=== PATIENT | female | born 1980 | race Caucasian/White ===

== ENCOUNTER 2017-07-02 16:32 | Inpatient (IN) | payer MEDICARE ==
[~2017-07-02] VITALS: Ht 160 cm; Wt 57.2 kg
--- NOTE | ~2017-07-02 | OP ---
PATIENT NAME: TIM LAWLER MEDICAL RECORD: [id number] :80 LOCATION:[id number] ADMISSION DATE:07/02/17 SURGEON: LEONIDES LO MD DATE OF OPERATION: 07/03/2017 PREOPERATIVE DIAGNOSES: 1. Acute appendicitis with localized peritonitis. 2. Diabetes insipidus. POSTOPERATIVE DIAGNOSES: 1. Acute appendicitis with localized peritonitis. 2. Diabetes insipidus. PROCEDURE: Laparoscopic appendectomy. SURGEON: Leonides Lo MD REPORT OF PROCEDURE: The patient's abdomen was prepped and draped in sterile fashion. A cutdown was made on the superior aspect of the umbilicus, 0 Vicryls were placed in the fascia bilaterally and the fascia was incised with 15-blade. I then bluntly entered the peritoneal cavity and placed a 12-mm Alcira port. Under direct visualization, a 5 mm trocar was placed in the left lower quadrant and another was placed in the suprapubic region. The patient's cecum was extending down into the pelvis. As we rotated this medially, we could see the appendix was retrocecal. It was adherent to the lateral abdominal wall and to the posterior aspect of the cecum. The base of the appendix appeared to be normal, but the distal appendix was acutely inflamed. As we peeled it off the lateral abdominal wall, there was a small collection of purulent material consistent with an abscess. This was irrigated out and suctioned clean. There was probably a total of 2 cc of abscess fluid present. The appendix was eventually peeled off the cecum. A window was made at the base of the appendix and the mesoappendix and the base of the appendix was transected at the cecum using a 45 blue load Endo-VIRGEN stapler. The appendix was then taken off the mesoappendix using Harmonic scalpel. We inspected the area thoroughly and eventually placed the appendix into an Endo Catch bag. With irrigation of the right lower quadrant, there was still some ooziness to the surrounding inflammatory tissue. We eventually treated this with Randee. This discontinued any bleeding. We then irrigated out the abdomen with normal saline with care taken to irrigate out the right lower quadrant and the pelvis. Again, at the conclusion of the case, there was no sign of any active bleeding. At this point, the ports and insufflation were then removed and the appendix was taken out through the umbilicus. The umbilical fascia was closed with interrupted 0 Vicryls times 3. The wounds were irrigated out with normal saline and infused with 10 mL of 0.25% Marcaine with epinephrine. The skin incisions were all closed with subcutaneous 5-0 Monocryl and dressed appropriately. COMPLICATIONS: None. CONDITION: Stable. ANESTHESIA: General endotracheal and local. BLOOD LOSS: Minimal. TRANSINT:[id number] Voice Confirmation ID: [id number] DOCUMENT ID: [id number] OPERATIVE REPORT [id number] TIM LAWLER CHRISTIAN MD at 0955 CC: [id number] DICTATION DATE: 07/03/17 1327 TRANSFORMER ASSEMBLER: 07/03/17 1345 ADM IN [place] [id number] [place] [id number]
[2017-07-02 17:05] LABS: BASOPHILS 0.2 % (0-2); HEMATOCRIT 37.4 % (36.0-48.0); HEMOGLOBIN 12.4 g/dL (12-16); IMMATURE GRANULOCYTES 0.2 % (0-5); LYMPHOCYTES 23.4 % (15-50); MCHC 33.2 g/dL (31.0-37.0); MCV 93.5 fL (80.0-100.0); MEAN PLATELET VOLUME 11.3 fL (7.4-10.4); MONOCYTES 7.5 % (2-11); NEUTROPHILS 67.7 % (40-80); PLATELET COUNT 265 10x3/uL (130-400); RDW 12.3 % (11.5-14.5); WBC 12.4 10x3/uL (4.8-10.8)
[2017-07-02 17:21] LABS: ALBUMIN 3.6 g/dL (3.4-5.0); ALKALINE PHOSPHATASE 75 U/L (46-116); ALT (SGPT) 20 U/L (10-68); CALC OSMOLALITY 273 mosm/kg (275-300); CALCIUM 8.7 mg/dL (8.5-10.1); CARBON DIOXIDE 32.3 mmol/L (21.0-32.0); CHLORIDE - SERUM 99 mmol/L (98-107); CREATININE - SERUM 0.8 mg/dL (0.6-1.3); GLUCOSE 84 mg/dL (74-106); POTASSIUM - SERUM 3.6 mmol/L (3.5-5.1); PROTEIN - SERUM 7.6 g/dL (6.4-8.2); SODIUM 138 mmol/L (136-145); UREA NITROGEN 10 mg/dL (7-18); eGFR NON AFRICAN AMERICAN 86 mL/min (90-120)
[2017-07-02] MEDS ORDERED: DESMOPRESSIN A0.2 MG PO (22:27)
[2017-07-02 22:28] VITALS: BP 112/71
[2017-07-03] VITALS (11 sets, daily range): BP systolic 86–134; BP diastolic 52–77; Ht 160 cm; Wt 57.2 kg
[2017-07-04 00:08] VITALS: BP 106/65
[2017-07-04 04:40] VITALS: BP 100/61
[2017-07-04 08:55] VITALS: BP 133/76
[2017-07-04] MEDS ORDERED: BACTRIM DS TABL1 TAB PO (09:54)
[2017-07-04] MEDS ORDERED: HYDROCODONE-APA1 TAB PO (09:54)
== END 2017-07-04 12:00 | disposition home or self-care (01) | DRG 339 ==
LOC: D.ER 16:32 → OBSVTIME 18:45 → D.WS 18:45
PROVIDERS: Family Medicine; Surgery
PROC: 0DTJ4ZZ Resection of Appendix, Percutaneous Endoscopic Approach (ICD-10-PCS; principal; 2017-07-03 12:00)
DX: K35.3 Acute appendicitis with localized peritonitis (principal); E23.2 Diabetes insipidus

== ENCOUNTER 2018-12-08 13:14 | Emergency (ER) | payer MEDICARE ==
[~2018-12-08] VITALS: Ht 160 cm; Wt 59.1 kg
[~2018-12-08 13:14] MED LIST: BACTRIM DS TABL1 TAB PO; DESMOPRESSIN A0.2 MG PO; HYDROCODONE-APA1 TAB PO
[2018-12-08 13:22] VITALS: Ht 160 cm; Wt 59.1 kg
[2018-12-08 13:58] LABS: BASOPHILS 0.5 % (0-2); EOSINOPHILS 2.4 % (0-7); HEMATOCRIT 39.4 % (36.0-48.0); IMMATURE GRANULOCYTES 0.1 % (0-5); LYMPHOCYTES 29.9 % (15-50); MCH 30.6 pg (26.0-34.0); MCV 92.7 fL (80.0-100.0); MEAN PLATELET VOLUME 11.5 fL (7.4-10.4); MONOCYTES 7.2 % (2-11); NEUTROPHILS 59.9 % (40-80); PLATELET COUNT 240 10x3/uL (130-400); RBC 4.25 10x6/uL (4.00-5.40); RDW 13.2 % (11.5-14.5); WBC 8.5 10x3/uL (4.8-10.8)
[2018-12-08 14:06] LABS: APPEARANCE CLEAR (CLEAR); BILIRUBIN NEGATIVE (NEGATIVE); COLOR YELLOW (YELLOW); GLUCOSE NEGATIVE (NEGATIVE); KETONE NEGATIVE (NEGATIVE); NITRITE NEGATIVE (NEGATIVE); PROTEIN NEGATIVE (NEGATIVE); UROBILINOGEN NORMAL (NORMAL)
[2018-12-08 14:11] LABS: ALBUMIN 3.7 g/dL (3.4-5.0); ALKALINE PHOSPHATASE 60 U/L (46-116); ALT (SGPT) 24 U/L (10-68); BILIRUBIN - TOTAL 0.14 mg/dL (0.2-1.3); CALC OSMOLALITY 280 mosm/kg (275-300); CALCIUM 8.5 mg/dL (8.5-10.1); CARBON DIOXIDE 31.3 mmol/L (21.0-32.0); CHLORIDE - SERUM 107 mmol/L (98-107); CREATININE - SERUM 0.8 mg/dL (0.6-1.3); GLUCOSE 90 mg/dL (74-106); POTASSIUM - SERUM 3.8 mmol/L (3.5-5.1); PROTEIN - SERUM 6.8 g/dL (6.4-8.2); SODIUM 141 mmol/L (136-145); UREA NITROGEN 12 mg/dL (7-18); eGFR NON AFRICAN AMERICAN 85 mL/min (90-120)
[2018-12-08 14:17] LABS: AMYLASE - SERUM 42 U/L (25-115); LIPASE 306 U/L (73-393); TROPONIN-I < 0.017 ng/mL (0.000-0.060)
[2018-12-08 15:57] LABS: HCG URINE NEGATIVE (NEGATIVE)
[2018-12-08] MEDS ORDERED: BENTYL 20 MG TA20 MG PO (16:57)
[2018-12-08] MEDS ORDERED: ZOFRAN ODT4 MG/UDTAB PO (16:57)
[2018-12-08] MEDS ORDERED: MIRALAX17 GM PO (16:57)
[2018-12-08 17:25] VITALS: BP 102/64
== END 2018-12-08 17:30 | disposition home or self-care (01) ==
LOC: D.ER 13:14
PROVIDERS: Family Medicine
DX: K59.00 Constipation, unspecified (principal); R11.2 Nausea with vomiting, unspecified; R10.9 Unspecified abdominal pain; E23.2 Diabetes insipidus

== ENCOUNTER → 2020-01-13 14:36 | Outpatient (CLI) | payer MEDICARE, OTHER ==
[2018-12-08 13:22] VITALS: BMI 23.0
[~2020-01-13 14:36] MED LIST changes: +BENTYL 20 MG TA20 MG PO; +MIRALAX17 GM PO; +ZOFRAN ODT4 MG/UDTAB PO
[2020-01-13 15:35] LABS: BASOPHILS 0.5 % (0-2); EOSINOPHILS 2.5 % (0-7); HEMATOCRIT 36.7 % (36.0-48.0); HEMOGLOBIN 11.8 g/dL (12-16); LYMPHOCYTES 39.3 % (15-50); MCHC 32.2 g/dL (31.0-37.0); MCV 93.4 fL (80.0-100.0); MEAN PLATELET VOLUME 10.8 fL (7.4-10.4); MONOCYTES 7.1 % (2-11); NEUTROPHILS 50.6 % (40-80); PLATELET COUNT 223 10x3/uL (130-400); RBC 3.93 10x6/uL (4.00-5.40); RDW 13.6 % (11.5-14.5); WBC 7.3 10x3/uL (4.8-10.8)
[2020-01-13 16:20] LABS: ALBUMIN 3.8 g/dL (3.4-5.0); ANION GAP 9.5 mmol/L (8-16); BILIRUBIN - TOTAL 0.23 mg/dL (0.2-1.3); CALCIUM 8.8 mg/dL (8.5-10.1); POTASSIUM - SERUM 3.5 mmol/L (3.5-5.1); T4 THYROXIN - FREE 0.82 ng/dL (0.76-1.46); THYROID STIMULATING HORMONE 0.72 uIU/mL (0.36-3.74)
[2020-01-13 16:39] LABS: ERYTHROCYTE SEDIMENTATION RATE 7 mm/hr (0-20)
[2020-01-14 06:11] LABS: RAPID PLASMA REAGIN Non Reactive (Non Reactive)
[2020-01-14 09:12] LABS: ANA REFLEX - DIRECT Negative (Negative); DOUBLE-STRANDED DNA ABS 1 IU/mL (0-9); SJOGRENS AB SSB <0.2 AI (0.0-0.9)
[2020-01-14 17:09] LABS: SPE - A/G RATIO 1.4 (0.7-1.7); SPE - ALBUMIN 3.7 g/dL (2.9-4.4); SPE - ALPHA-1 GLOBULIN 0.2 g/dL (0.0-0.4); SPE - ALPHA-2 GLOBULIN 0.7 g/dL (0.4-1.0); SPE - BETA GLOBULIN 0.9 g/dL (0.7-1.3); SPE - GAMMA GLOBULIN 0.8 g/dL (0.4-1.8); SPE - M-SPIKE Not Observed g/dL (Not Observed); SPE - TOTAL PROTEIN 6.3 g/dL (6.0-8.5)
[2020-01-15 13:12] LABS: SINGLE-STRANDED DNA ABS <20 EU (0-19)
== END | disposition home or self-care (01) ==
LOC: D.LAB 14:36 → D.MRI 15:00
PROVIDERS: ATTEND Psychiatry & Neurology Neurology
DX: G60.9 Hereditary and idiopathic neuropathy, unspecified (principal)